=== PATIENT | male | born 1990 | race African-American/Black ===

== ENCOUNTER 2017-04-01 08:30 | Emergency (ER) | payer MEDICAID ==
[~2017-04-01] VITALS: Ht 182.9 cm; Wt 84.0 kg
[2017-04-01] MEDS ORDERED: BACITRACIN ZINC OINT UDPKT TOP ONE (11:15)
[2017-04-01] MEDS ORDERED: LIDOCAINE HCL 1% 20ML VIAL (Pyxis) INJ MC ONE (11:15)
[2017-04-01] MEDS ORDERED: KETOROLAC 60MG/2ML VIAL IM ONE (11:15)
[2017-04-01] MEDS ORDERED: HYDROCODONE/ACETAMINOPHEN 5/325MG TABLET PO ONE (12:30)
[2017-04-01 13:00] VITALS: BP 137/80
== END 2017-04-01 13:39 | disposition home or self-care (01) ==
LOC: ER 08:51
DX: S01.81XA Laceration without foreign body of other part of head, initial encounter (principal); X58.XXXA Exposure to other specified factors, initial encounter; Y93.89 Activity, other specified; Y92.89 Other specified places as the place of occurrence of the external cause; Y99.8 Other external cause status; Z88.1 Allergy status to other antibiotic agents
CPT/HCPCS: 12001; 96372; 99283; J1885; J3490; Z7610